=== PATIENT | female | born 1965 | race Asian ===

== ENCOUNTER 2022-08-20 09:11 | Day surgery (SDC) | payer OTHER ==
[~2022-08-20] VITALS: Ht 160 cm; Wt 63.5 kg
[2022-08-20] MEDS ORDERED: fentaNYL citrate 0.05 MG/ML VIAL ONE (10:13)
[2022-08-20] MEDS ORDERED: diphenhydrAMINE 50 MG/ML VIAL ONE (10:13)
[2022-08-20] MEDS ORDERED: MIDAZOLAM 5 MG/5 ML VIAL ONE (10:13)
[2022-08-20] MEDS ORDERED: LIDOCAINE 2% 100 MG/5 ML UJET TP ONE (10:14)
[2022-08-20] MEDS ORDERED: fentaNYL citrate 0.05 MG/ML VIAL IVP ONE (11:40)
[2022-08-20] MEDS ORDERED: MIDAZOLAM 2 MG/2 ML VIAL IVP ONE (11:40)
== END 2022-08-20 11:35 | disposition home or self-care (01) ==
LOC: MOR 09:11 → MMU 09:11 → MOR 11:35 → EDSEX 12:30
PROVIDERS: ATTEND Internal Medicine Gastroenterology
DX: Z12.11 Encounter for screening for malignant neoplasm of colon (principal); E78.5 Hyperlipidemia, unspecified; Z20.822 Contact with and (suspected) exposure to COVID-19; Z79.899 Other long term (current) drug therapy
CPT/HCPCS: 45378; 87426; J2250; J3010; J1200